=== PATIENT | female | born 2000 | race Caucasian/White ===

== ENCOUNTER 2018-12-13 04:46 | Emergency (ER) | payer OTHER ==
[~2018-12-13] VITALS: Wt 46.6 kg
[~2018-12-13 04:46] MED LIST: ACET325T33 PO; ONDA4TAB8 PO; RANI150T35 PO
--- NOTE | 2018-12-13 05:44 | ERD ---
ER Documentation Chief Complaint Chief Complaint VOMITING X'S 1 DAY HPI There is a 18-year-old female presents to emerge department with complaints of vomiting for about a day. Stated that she has been drinking alcohol yesterday. Patient is unable to state how many points/bottle of beer or alcohol she had. LMP: Stated it was last month. Stated that she has a Depo shot. . Denies headache, head injury, loss of consciousness, dizziness, neck pain, neck stiffness, throat pain, difficulty swallowing, difficulty breathing lying flat, shoulder pain, chest pain, back pain, constipation, diarrhea, urinary symptoms, or possibility being , loss of bowel and bladder control, trauma, injury, falls, difficulty walking due to pain, numbness or tingling sensation, calf pain, recent travel, recent major surgery in the last 3 weeks, calf pain, recent long travel, recent exposure to any illness, recent antibiotic use in the last 3 months, fever, chills, seizures. Past medical history: Surgical history: Social: Denies smoking, use of alcoholic beverages, use of illegal drugs. ROS All systems reviewed and are negative except as per history of present illness. Medications Home Meds Active Scripts Ondansetron Hcl* (Zofran*) 4 Mg Tablet, 4 MG PO Q8H PRN for NAUSEA AND/OR VOMITING, #12 TAB Prov:GHULAM SHELL MD 12/13/18 Ranitidine Hcl* (Zantac*) 150 Mg Tablet, 150 MG PO BID PRN for EPIGASTRIC PAIN, #14 TAB Prov:GHULAM SHELL MD 12/13/18 Ondansetron Hcl* (Zofran*) 4 Mg Tablet, 4 MG PO Q6H for NAUSEA AND/OR VOMITING, #30 TAB Prov:MANNY CALERO PA-C 03/31/16 Acetaminophen* (Tylenol*) 325 Mg Tablet, 2 TAB PO Q8 PRN for PAIN AND OR ELEVATED TEMP, #20 TAB Prov:MANNY CALERO PA-C 03/31/16 Ranitidine Hcl* (Zantac*) 150 Mg Tablet, 150 MG PO BID PRN for EPIGASTRIC PAIN, #30 TAB Prov:MAYUR FLORES PA-C 03/04/16 Ondansetron Hcl* (Zofran*) 4 Mg Tablet, 4 MG PO Q6H for NAUSEA AND/OR VOMITING, #30 TAB Prov:MAYUR FLORES PA-C 03/04/16 Allergies Allergies: Coded Allergies: No Known Allergy (Unverified , 03/04/16) PMhx/Soc History of Surgery: No Anesthesia Reaction: No Hx Neurological Disorder: No Hx Respiratory Disorders: No Hx Cardiac Disorders: No Hx Psychiatric Problems: No Hx Miscellaneous Medical Probl: No Hx Alcohol Use: No Hx Substance Use: No Hx Tobacco Use: No Physical Exam Vitals Vital Signs Date Temp Pulse Resp B/P (MAP) Pulse Ox O2 O2 Flow FiO2 Time Delivery Rate 12/13/18 98.9 105 16 100/57 99 Room Air 08:50 (71) 12/13/18 97.6 110 18 139/97 96 04:49 (111) Physical Exam Const: No acute distress Head: Atraumatic Eyes: Normal Conjunctiva ENT: Normal External Ears, Nose and Mouth. Neck: Full range of motion. No meningismus. Resp: Clear to auscultation bilaterally Cardio: Regular rate and rhythm, no murmurs Abd: Soft, non tender, non distended. Normal bowel sounds. Mild epigastric tenderness. Negative Geovanny sign (heel jar test). Negative psoas sign. No CVA tenderness. Skin: No petechiae or rashes. Back: No midline or flank tenderness Ext: No cyanosis, or edema Neur: Awake and alert. Negative for tremors. No neurological deficit. Psych: Normal Mood and Affect Result Diagram: 12/13/18 0615 12/13/18 0615 Results 24 hrs Laboratory Tests Test 12/13/18 05:51 12/13/18 06:04 12/13/18 06:15 Urine Color YELLOW Urine Clarity CLOUDY Urine pH 6.0 Urine Specific [place] 1.023 Urine Ketones 1+ mg/dL Urine Nitrite NEGATIVE mg/dL Urine Bilirubin NEGATIVE mg/dL Urine Urobilinogen NEGATIVE mg/dL Urine Leukocyte Esterase TRACE Mauricio/ul Urine Microscopic RBC 3 /HPF Urine Microscopic WBC 18 /HPF Urine Squamous Epithelial Cells FEW /HPF Urine Amorphous Crystals FEW /HPF Urine Bacteria FEW /HPF Urine Mucus FEW /HPF Urine Hemoglobin NEGATIVE mg/dL Urine Glucose NEGATIVE mg/dL Urine Total Protein NEGATIVE mg/dl Urine Opiates Screen Negative Urine Barbiturates Negative Urine Amphetamines Screen Negative Urine Benzodiazepines Screen Negative Urine Cocaine Screen Negative Urine Cannabinoids Positive POC Beta HCG, Qualitative NEGATIVE White Blood Count 15.7 10^3/ul Red Blood Count 4.86 10^6/ul Hemoglobin 14.0 g/dl Hematocrit 42.6 % Mean Corpuscular Volume 87.7 fl Mean Corpuscular Hemoglobin 28.8 pg Mean Corpuscular 32.9 g/dl Hemoglobin Concent Red Cell Distribution Width 13.3 % Platelet Count 429 10^3/UL Mean Platelet Volume 10.0 fl Immature Granulocytes % 0.600 % Neutrophils % 83.0 % Lymphocytes % 14.3 % Monocytes % 1.9 % Eosinophils % 0.0 % Basophils % 0.2 % Nucleated Red Blood Cells % 0.0 /100WBC Immature Granulocytes # 0.100 10^3/ul Neutrophils # 13.0 10^3/ul Lymphocytes # 2.3 10^3/ul Monocytes # 0.3 10^3/ul Eosinophils # 0.0 10^3/ul Basophils # 0.0 10^3/ul Nucleated Red Blood Cells # 0.0 10^3/ul Sodium Level 148 mmol/L Potassium Level 3.9 mmol/L Chloride Level 111 mmol/L Carbon Dioxide Level 21 mmol/L Anion Gap 16 Blood Urea Nitrogen 11 mg/dl Creatinine 0.44 mg/dl Est Glomerular Filtrat > 60 mL/min Rate mL/min Glucose Level 128 mg/dl Calcium Level 9.9 mg/dl Total Bilirubin 0.1 mg/dl Direct Bilirubin 0.00 mg/dl Indirect Bilirubin 0.1 mg/dl Aspartate Amino 25 IU/L Transf (AST/SGOT) Alanine 23 IU/L Aminotransferase (ALT/SGPT) Alkaline Phosphatase 119 IU/L Total Protein 8.2 g/dl Albumin 5.0 g/dl Globulin 3.20 g/dl Albumin/Globulin Ratio 1.56 Lipase 46 U/L Current Medications Medications Dose Sig/Dian Start Time Status Last (Trade) Ordered Route PRN Stop Time Admin Dose Reason Admin Sodium 1,000 ml @ Q1H ONCE 12/13/18 DC 12/13/18 Chloride 1,000 mls/hr IV 06:00 06:13 12/13/18 06:59 Ondansetron 4 mg ONCE STAT 12/13/18 DC 12/13/18 HCl (Zofran IV 06:00 06:12 Inj) 12/13/18 06:02 10 mg ONCE ONCE 12/13/18 DC 12/13/18 Metoclopramid IV 06:00 06:12 e HCl 12/13/18 06:02 (Reglan) 1,000 ml @ Q2H ONCE 12/13/18 DC 12/13/18 Multivitamins 500 mls/hr IV 06:30 06:33 10 12/13/18 08:29 ml/Thiamine HCl 100 mg/Folic Acid 1 mg/Magnesium Sulfate 2 gm/ Sodium Chloride Lorazepam 2 mg ONCE ONCE 12/13/18 DC 12/13/18 (Ativan) IV 06:30 06:39 12/13/18 06:31 Ceftriaxone 50 ml @ ONCE ONCE 12/13/18 DC 12/13/18 Sodium 100 mls/hr IVPB 08:00 08:01 12/13/18 08:29 Patient: LATASHA JOSE : 2000 Age: 18 Sex: F MR #: [id number] DOS: 12/13/18 0604 Ordering MD: AMANDA CORONEL NP Location: [facility] Room/Bed: PROCEDURE: ULTRASOUND LIMITED ABDOMEN CLINICAL INDICATION: 18-year-old female with abdominal pain and vomiting. TECHNIQUE: Multiple sonographic of the right upper quadrant of the abdomen were obtained. The images were reviewed on a PACS workstation. COMPARISON: None. FINDINGS: The pancreas is partially visualized and is otherwise without abnormal echogenicity. The liver displays normal echogenicity. The liver measures 12.7 cm in length. No evidence of intrahepatic biliary ductal dilatation is seen. The portal and hepatic veins are unremarkable. The gallbladder demonstrates no wall thickening, sludge, nor stones. No pericholecystic fluid is seen. The common bile duct measures 1.8 mm and is not dilated. The right kidney displays normal echogenicity. The right kidney measures 9.6 cm in maximal length. No caliectasis or hydronephrosis is seen. No free fluid is seen. IMPRESSION: Unremarkable right upper quadrant abdominal ultrasound. .Mehul Cruz MD, MD Date Time Electronically viewed and signed by .Mehul Cruz MD, on 12/13/2018 07:30 Procedures/MDM Rapid medical screening was done. No life-threatening condition at this time. Diagnostic tests, initial treatment was ordered. Patient was endorsed to my supervising physician, Dr. Radha Shell who agreed to continue to care. At the time of discharge, symptoms resolved, vital signs stable. Differential diagnosis include but not limited to: UTI, colitis, gastroenteritis, kidney stones, irritable bowel syndrome, inflammatory bowel syndrome, malabsorption syndrome, cholelithiasis, food intolerance, medication side effect, pancreatitis, diverticulitis, bowel obstruction. Physical examination and clinical presentation consistent most likely with dehydration secondary to gastritis most likely caused of alcohol consumption. Incidentally, the patient was found to have a urinary tract infection without e vidence of pyelonephritis. Low suspicion of acute abdomen During the ED course the patient remained stable, no new complaints. The patient received treatment with IV fluids and IV medications presenting overall improvement of the symptoms. Results and clinical impression discussed with the patient who agrees with management. The patient is stable to be treated outpatient and will be discharged home; some side effects of prescribed medications (headache, rash, nausea, vomiting, diarrhea, drowsiness, habituation, bleeding, hypertension, interactions with other medications) were reviewed. Follow up with the primary care provider in the next 48h is recommended. If symptoms persist, worsen or new symptoms develop, then patient should return to the ED immediately. Instructions explained and given directly by me to the patient with acknowledgment and demonstrated understanding. Disclaimer: Inadvertent spelling and grammatical errors are likely due to EHR/dictation software use and do not reflect on the overall quality of patient care. Also, please note that the electronic time recorded on this note does not necessarily reflect the actual time of the patient encounter. Departure Diagnosis: Primary Impression: Vomiting Additional Impression: UTI (urinary tract infection) Condition: Stable Additional Instructions: Thank you very much for allowing us to participate in your care. Your health and safety is our top priority at [facility]. Call your primary care doctor TOMORROW for an appointment during the next 2-4 days and bring all the information and medications prescribed. Have prescriptions filled and follow precisely the directions on the label. If the symptoms get worse and your provider is unavailable, return to the Emergency Department immediately. AMANDA CORONEL Dec 13, 2018 05:44 GHULAM SHELL MD Dec 13, 2018 07:41
[2018-12-13] MEDS ORDERED: SOD CHLORIDE 0.9% 1,000 ML IV ONE (06:00)
[2018-12-13] MEDS ORDERED: ONDANSETRON 4 MG INJ IV STA (06:00)
[2018-12-13] MEDS ORDERED: METOCLOPRAMIDE 10 MG INJ IV ONE (06:00)
[2018-12-13] MEDS ORDERED: LORAZEPAM 2 MG INJ IV ONE (06:30)
[2018-12-13] MEDS ORDERED: MULTIVITAMINS 10 ML, THIAMINE 100 MG, FOLIC ACID 1 MG, MAGNESIUM SULFATE 2 GM in SOD CH... IV ONE (06:30)
[2018-12-13] MEDS ORDERED: CEFTRIAXONE 2 GM/50 ML (PMX) 50 ML IVPB ONE (08:00)
[2018-12-13] MEDS ORDERED: ONDA4TAB8 PO (08:38)
[2018-12-13] MEDS ORDERED: RANI150T35 PO (08:38)
[2018-12-13 08:50] VITALS: BP 100/57; PULSE 105; RESP 16
== END 2018-12-13 08:52 | disposition home or self-care (01) ==
LOC: FTE 04:46
DX: N39.0 Urinary tract infection, site not specified (principal)
CPT/HCPCS: 76705; 80053; 80307; 81001; 81025; 83690; 85025; 87400; 96365; 96366; 96368; 96375; J0696; J2060; J2405; J2765; J3411; J3475; J7030; Z7502; Z7610